=== PATIENT | male | born 1970 | race African-American/Black ===

== ENCOUNTER → 2017-12-02 | Outpatient (CLI) | payer OTHER ==
[2017-12-02 14:41] LABS: HCT 44.2 % (39.0-53.0); HGB 14.8 gm/dL (13.0-17.5); MCH 29.2 pg (25.0-35.0); MCHC 33.4 g/dL (31.0-37.0); MCV 87.6 fL (80.0-100.0); Mean Platelet Volume 7.4; Platelet Count 207 k/uL (150-450); RBC 5.05 m/uL (4.30-5.90); RDW 14.8 % (11.5-15.5); WBC 8.9 k/uL (3.8-10.6)
[2017-12-02 14:52] LABS: ALT 36 U/L (21-72); AST 36 U/L (17-59); Albumin 3.9 g/dL (3.5-5.0); Alkaline Phosphatase 73 U/L (38-126); Anion Gap 12 mmol/L; Blood Urea Nitrogen 24 mg/dL (9-20); Calcium 9.7 mg/dL (8.4-10.2); Carbon Dioxide 23 mmol/L (22-30); Chloride 103 mmol/L (98-107); Glucose 89 mg/dL (74-99); Potassium 4.4 mmol/L (3.5-5.1); Sodium 138 mmol/L (137-145); Total Bilirubin 0.3 mg/dL (0.2-1.3); Total Protein 7.8 g/dL (6.3-8.2)
== END | disposition home or self-care (01) ==
LOC: LABWHC1 13:46
PROVIDERS: ATTEND Thoracic Surgery (Cardiothoracic Vascular Surgery)
DX: E63.8 Other specified nutritional deficiencies (principal)
CPT/HCPCS: 36415; 80053; 84134; 85027

== ENCOUNTER → 2017-12-29 | Outpatient (CLI) | payer OTHER ==
--- NOTE | 2017-12-29 08:50 | XR ---
EXAMINATION TYPE: XR chest 2V DATE OF EXAM: 12/29/2017 COMPARISON: NONE HISTORY: Shortness of breath cough and wheeze for 2 months. TECHNIQUE: Frontal and lateral views of the chest are obtained. FINDINGS: There are bilateral suprahilar central opacities. There is central peribronchial thickeni ng. No pleural effusion or pneumothorax is evident bilaterally. Surgical clips anterior upper abdomen epigastric region just below diaphragm as noted. The cardiac silhouette size is upper limits of norm al. Spine is straightened. IMPRESSION: Favor chronic emphysematous change with possible developing central suprahilar infiltrat es particularly right upper lobe. Consider progress two view chest xray.
== END | disposition home or self-care (01) ==
LOC: RADXRMAIN 08:07
PROVIDERS: ATTEND Internal Medicine Sleep Medicine
DX: J43.9 Emphysema, unspecified (principal)
CPT/HCPCS: 71046

== ENCOUNTER → 2017-12-29 | Outpatient (CLI) | payer OTHER ==
[2017-12-29 09:10] VITALS: BMI 48.8
== END | disposition home or self-care (01) ==
LOC: MNTWWP 08:24
PROVIDERS: ATTEND Thoracic Surgery (Cardiothoracic Vascular Surgery)
DX: E66.01 Morbid (severe) obesity due to excess calories (principal); Z68.42 Body mass index [BMI] 45.0-49.9, adult
CPT/HCPCS: 97802

== ENCOUNTER → 2018-02-09 | Outpatient (CLI) | payer OTHER ==
--- NOTE | 2018-02-09 14:32 | CT ---
EXAMINATION TYPE: CT chest wo con DATE OF EXAM: 02/09/2018 COMPARISON: Chest x-ray December 29, 2017 HISTORY: Wheezing, coughing, shortness of breath, green phlegm x 1 year. History of asthma. History o f rheumatoid arthritis affecting lungs. CT DLP: 928.4 mGycm. Automated Exposure Control for Dose Reduction was Utilized. TECHNIQUE: CT scan of the thorax is performed without IV contrast. FINDINGS: LUNGS: Central irregular groundglass opacity is present in both lungs most prominent in the upper lob es. There is some mild reticulation and distortion in the periphery of the right upper lung anteriorl y. No suspicious nodule or mass is present. No significant bronchiectasis is noted. No pleural effusi on or pneumothorax is appreciated. MEDIASTINUM: Lack of IV contrast is noted to limit evaluation for mediastinal and especially hilar ad enopathy. There are prominent but subcentimeter bilateral hilar and mediastinal lymph nodes. There ar e no definitive greater than 1 cm hilar or mediastinal lymph nodes. No cardiomegaly or pericardial effusion is seen. Coronary artery calcification is present which is noted marker for coronary artery disease. There is streak artifact from metallic density near apex of heart could reflect clips or por tion of broken external pacemaker of the. Correlate clinically. The latter is suspected. OTHER: Moderate to advanced multilevel anterior and lateral spurring in the lower thoracic spine is s een. IMPRESSION: Cannot exclude acute pulmonary process in the central lungs bilaterally worse in upper moises ngs though groundglass opacity findings are favored chronic related to known rheumatoid lung disease.
== END | disposition home or self-care (01) ==
LOC: CPPFTMAIN 11:42
PROVIDERS: ATTEND Internal Medicine Sleep Medicine
DX: J45.50 Severe persistent asthma, uncomplicated (principal)
CPT/HCPCS: 71250; 94060; 94726; 94729

== ENCOUNTER → 2018-02-23 | Outpatient (CLI) | payer OTHER ==
[2018-02-24 11:54] LABS: Alt. alternata IgE Class CLASS II; Alternaria alternata IgE 3.31 kU/L (<0.35); Asperg. fumagatus IgE <0.35 kU/L (<0.35); Asperg. fumagatus IgE Class CLASS 0; Bermuda Grass IgE 0.52 kU/L (<0.35); Birch(Com.Silvr) IgE <0.35 kU/L (<0.35); Birch(Com.Silvr) IgE Class CLASS 0; Cat Epith & Dander IgE <0.35 kU/L (<0.35); Cat Epith & Dander IgE Class CLASS 0; Clad herbarum IgE <0.35 kU/L (<0.35); Cottonwood IgE <0.35 kU/L (<0.35); Dermato. farinae IgE Class CLASS III; Dog Dander IgE <0.35 kU/L (<0.35); Elm IgE <0.35 kU/L (<0.35); Maple (Box Elder) IgE Class CLASS I; Mountain Cedar IgE 1.12 kU/L (<0.35); Mountain Cedar IgE Class CLASS II; Mouse Urine IgE Class CLASS 0; Nettle IgE 1.24 kU/L (<0.35); Nettle IgE Class CLASS II; Penicillium notatum IgE Class CLASS 0; Rough Marshelder IgE 3.28 kU/L (<0.35); Rough Marshelder IgE Class CLASS II; White Ash IgE Class CLASS I
== END | disposition home or self-care (01) ==
LOC: LABWHC1 13:28
PROVIDERS: ATTEND Internal Medicine Sleep Medicine
DX: B44.81 Allergic bronchopulmonary aspergillosis (principal)
CPT/HCPCS: 36415; 82785; 86001; 86003; 86606; 86609

== ENCOUNTER 2018-04-08 07:10 | Emergency (ER) | payer OTHER ==
--- NOTE | 2018-04-08 07:34 | ED ---
General Adult HPI - General Chief complaint: ENT Stated complaint: Ear Pain Time Seen by Provider: 04/08/18 07:25 Source: patient, RN notes reviewed Mode of arrival: ambulatory Limitations: no limitations - History of Present Illness Initial comments: Patient is a pleasant 47-year-old male presenting to the emergency Department with complaints of ear fullness. Onset of symptoms was several days to weeks ago. Patient has some muffled hearing from his right ear. Patient states it is irritating. Patient states he did have some discomfort the other day however that has resolved. No throat pain. Patient does have history of chronic abscesses. Patient does have an area that opened in the suprapubic region. Patient requests antibiotics for this. Patient states there has been some purulent drainage. - Related Data Home Medications Medication Instructions Recorded Confirmed Albuterol Inhaler [Ventolin Hfa 1 - 2 puff INHALATION RT-Q6H PRN 11/24/17 Inhaler] Baclofen 10 mg PO BID 11/24/17 04/08/18 Budesonide-Formot 160-4.5 Mcg 2 puff INHALATION RT-BID 11/24/17 04/08/18 [Symbicort 160-4.5 Mcg Inhaler] Colchicine 0.6 mg PO BID 11/24/17 04/08/18 Ibuprofen [Motrin] 800 mg PO Q8H PRN 11/24/17 04/08/18 Levothyroxine Sodium [Synthroid] 137 mcg PO DAILY 11/24/17 04/08/18 Loratadine [Claritin] 10 mg PO DAILY 11/24/17 04/08/18 Pregabalin [Lyrica] 100 mg PO BID 11/24/17 04/08/18 oxyCODONE HCL 15 mg PO TID PRN 11/25/17 04/08/18 Adalimumab [Humira Pen] 40 mg PO Q14D 04/08/18 04/08/18 Ipratropium-Albuterol Nebulize 3 ml INHALATION RT-QID 04/08/18 04/08/18 [Duoneb 0.5 mg-3 mg/3 ml Soln] Previous Rx's Medication Instructions Recorded Cephalexin [Keflex] 500 mg PO QID #40 cap 04/08/18 Ciprofloxacin HCl/Dexameth 3 drops RIGHT EAR BID #10 ml 04/08/18 [Ciprodex Otic Suspension] Allergies Allergy/AdvReac Type Severity Reaction Status Date / Time No Known Allergies Allergy Verified 04/08/18 07:46 Review of Systems ROS Statement: Those systems with pertinent positive or pertinent negative responses have been documented in the HPI. ROS Other: All systems not noted in ROS Statement are negative. Constitutional: Denies: fever Eyes: Denies: eye pain ENT: Reports: other (Ear fullness and decreased hearing right ear) Respiratory: Denies: dyspnea Cardiovascular: Denies: chest pain Endocrine: Denies: fatigue Gastrointestinal: Denies: abdominal pain Genitourinary: Denies: dysuria Musculoskeletal: Denies: back pain Skin: Reports: as per HPI, rash Neurological: Denies: weakness Past Medical History Past Medical History: Asthma, Deep Vein Thrombosis (DVT), Rheumatoid Arthritis ( RA), Skin Disorder, Sleep Apnea/CPAP/BIPAP, Thyroid Disorder Additional Past Medical History / Comment(s): uses CPAP, gout,chronic back pain , DVT 2017, wound left foot between toes History of Any Multi-Drug Resistant Organisms: None Reported Additional Past Surgical History / Comment(s): pilonidal cyst removed Past Anesthesia/Blood Transfusion Reactions: No Reported Reaction Past Psychological History: Anxiety Smoking Status: Current every day smoker Past Alcohol Use History: None Reported Past Drug Use History: None Reported - Past Family History Mother Family Medical History: Cancer Father Family Medical History: Coronary Artery Disease (CAD), CVA/TIA General Exam Limitations: no limitations General appearance: alert, in no apparent distress Head exam: Present: atraumatic Eye exam: Present: normal appearance ENT exam: Present: normal oropharynx, other (Bilateral cerumen impaction) Neck exam: Present: normal inspection Respiratory exam: Present: normal lung sounds bilaterally Cardiovascular Exam: Present: regular rate, normal rhythm GI/Abdominal exam: Present: soft. Absent: tenderness Extremities exam: Present: normal inspection Neurological exam: Present: alert Psychiatric exam: Present: normal affect, normal mood Skin exam: Present: other (Small open abscess in the suprapubic region with purulent drainage.) Course Vital Signs 04/08/18 07:13 Temperature 98 F Pulse Rate 83 Respiratory 22 Rate Blood Pressure 120/88 O2 Sat by Pulse 97 Oximetry Medical Decision Making - Medical Decision Making Patient reevaluated and improved. Resolution of Cerumen impaction. Disposition Clinical Impression: Cerumen impaction, Suprapubic abscess Disposition: HOME SELF-CARE Condition: Stable Instructions: Abscess (ED), Cerumen Impaction (ED) Additional Instructions: Please follow-up with primary care physician as well as general surgeon in the next few days for recheck. Return for increased rash or swelling, ear problems , fevers, worsening symptoms or other concerns. Prescriptions: Cephalexin [Keflex] 500 mg PO QID #40 cap Ciprofloxacin HCl/Dexameth [Ciprodex Otic Suspension] 3 drops RIGHT EAR BID #10 ml Is patient prescribed a controlled substance at d/c from ED?: No Referrals: Sen Langley DO [Primary Care Provider] - 1-2 days Madison Encarnacion DO [Doctor of Osteopathic Medicine] - 1-2 days Time of Disposition: 08:31
[2018-04-08 08:40] VITALS: BP 118/76; PULSE 86; RESP 18; TEMP 97.8
== END 2018-04-08 08:40 | disposition home or self-care (01) ==
LOC: EC 07:10
DX: H61.21 Impacted cerumen, right ear (principal); L02.211 Cutaneous abscess of abdominal wall; J45.909 Unspecified asthma, uncomplicated; G47.30 Sleep apnea, unspecified; F41.9 Anxiety disorder, unspecified; F17.200 Nicotine dependence, unspecified, uncomplicated; Z79.51 Long term (current) use of inhaled steroids; Z79.899 Other long term (current) drug therapy; Z86.718 Personal history of other venous thrombosis and embolism
CPT/HCPCS: 87070; 87205; 99283

== ENCOUNTER 2018-05-05 20:36 | Emergency (ER) | payer OTHER ==
--- NOTE | 2018-05-05 23:04 | ED ---
General Adult HPI - General Source: RN notes reviewed <Gulshan Peterson - Last Filed: 05/06/18 01:04> - General Source: patient Mode of arrival: ambulatory Limitations: no limitations <Mireille Calixto - Last Filed: 05/06/18 08:04> - General Chief complaint: Skin/Abscess/Foreign Body Stated complaint: boil on back Time Seen by Provider: 05/05/18 22:19 - History of Present Illness Initial comments: Patient's a 47-year-old male significant past medical history for hidradenitis suppurative who presents emergency room today with a chief complaint of an abscess to his lower back. Patient does admit that it's been present for the past 3 weeks. He states is common larger. He does not that he is on doxycycline that he just started just 2 days ago. He does admit that he was seen in the ER recently for an abscess to the lower abdomen. He states this one seems to be rolled same but the one to the lower back seems like it has gotten larger. He states there is some small amount draining coming from the area. Patient does admit that he's had it lanced in the past. He states he is planning to follow up the surgeon. He denies any other complaints or symptoms. Patient denies any recent fever, chills, shortness of breath, chest pain, back pain, abdominal pain, nausea or vomiting, numbness or tingling, headaches or visual changes, or any other complaints. (Gulshan Peterson) - Related Data Home Medications Medication Instructions Recorded Confirmed Albuterol Inhaler [Ventolin Hfa 1 - 2 puff INHALATION RT-Q6H PRN 11/24/17 Inhaler] Baclofen 10 mg PO BID 11/24/17 04/08/18 Budesonide-Formot 160-4.5 Mcg 2 puff INHALATION RT-BID 11/24/17 04/08/18 [Symbicort 160-4.5 Mcg Inhaler] Colchicine 0.6 mg PO BID 11/24/17 04/08/18 Ibuprofen [Motrin] 800 mg PO Q8H PRN 11/24/17 04/08/18 Levothyroxine Sodium [Synthroid] 137 mcg PO DAILY 11/24/17 04/08/18 Loratadine [Claritin] 10 mg PO DAILY 11/24/17 04/08/18 Pregabalin [Lyrica] 100 mg PO BID 11/24/17 04/08/18 oxyCODONE HCL 15 mg PO TID PRN 11/25/17 04/08/18 Adalimumab [Humira Pen] 40 mg PO Q14D 04/08/18 04/08/18 Ipratropium-Albuterol Nebulize 3 ml INHALATION RT-QID 04/08/18 04/08/18 [Duoneb 0.5 mg-3 mg/3 ml Soln] Previous Rx's Medication Instructions Recorded Cephalexin [Keflex] 500 mg PO QID #40 cap 04/08/18 Ciprofloxacin HCl/Dexameth 3 drops RIGHT EAR BID #10 ml 04/08/18 [Ciprodex Otic Suspension] Clindamycin HCl 300 mg PO Q6H #40 cap 05/06/18 Allergies Allergy/AdvReac Type Severity Reaction Status Date / Time morphine AdvReac Nausea & Verified 05/05/18 21:34 Vomiting Review of Systems ROS Other: All systems not noted in ROS Statement are negative. <Gulshan Peterson - Last Filed: 05/06/18 01:04> ROS Other: All systems not noted in ROS Statement are negative. <Mireille Calixto P - Last Filed: 05/06/18 08:04> ROS Statement: Those systems with pertinent positive or pertinent negative responses have been documented in the HPI. Past Medical History Past Medical History: Asthma, Deep Vein Thrombosis (DVT), Rheumatoid Arthritis ( RA), Skin Disorder, Sleep Apnea/CPAP/BIPAP, Thyroid Disorder Additional Past Medical History / Comment(s): uses CPAP, gout,chronic back pain , DVT 2017, wound left foot between toes History of Any Multi-Drug Resistant Organisms: MRSA Date of last positivie culture/infection: 04/08/18 MDRO Source:: LEG Additional Past Surgical History / Comment(s): pilonidal cyst removed Past Anesthesia/Blood Transfusion Reactions: No Reported Reaction Past Psychological History: Anxiety Smoking Status: Current every day smoker Past Alcohol Use History: None Reported Past Drug Use History: None Reported - Past Family History Mother Family Medical History: Cancer Father Family Medical History: Coronary Artery Disease (CAD), CVA/TIA <Mireille Calixto - Last Filed: 05/06/18 08:04> General Exam <Gulshan Peterson - Last Filed: 05/06/18 01:04> Limitations: no limitations <Mireille Calixto - Last Filed: 05/06/18 08:04> - General Exam Comments Initial Comments: General: The patient is awake and alert Eye: extra-ocular movements are intact. No nystagmus. There is normal conjunctiva bilaterally. No signs of icterus. Ears, nose, mouth and throat: There are moist mucous membranes and no oral lesions. Neck: The neck is supple Cardiovascular: There is a regular rate and rhythm. No murmur, rub or gallop is appreciated. Respiratory: Lungs are clear to auscultation, respirations are non-labored, breath sounds are equal. No wheezes, stridor, rales, or rhonchi. Gastrointestinal: Admits soft on palpation. Musculoskeletal: Normal ROM, no tenderness. Sensation intact. Neurological: A&O x 3. CN II-XII intact, There are no obvious motor or sensory deficits. Coordination appears grossly intact. Speech is normal. Skin: Large abscess to the lower back measuring approximately 4 cm across. Firm on palpation mildly warm. Psychiatric: Cooperative, appropriate mood & affect, normal judgment. (Gulshan Peterson) Vital Signs 05/05/18 05/06/18 05/06/18 21:26 00:15 01:45 Temperature 98.6 F 98.1 F 98.8 F Pulse Rate 78 75 100 Respiratory 18 18 20 Rate Blood Pressure 136/86 140/85 150/100 O2 Sat by Pulse 99 98 93 L Oximetry Procedures <Gulshan Peterson - Last Filed: 05/06/18 01:04> <Mireille Calixto - Last Filed: 05/06/18 08:04> - Procedures Initial comment: Procedure: Incision and drainage The skin overlying the abscess was prepped with Betadine, and anesthetized with 1% lidocaine without epinephrine. A #11 scalpel was then used to incise the abscess. Some purulent material was then extracted from the lesion. Gauze dressing placed on top, The patient tolerated the procedure well. (Gulshan Peterson) Medical Decision Making <Gulshan Peterson - Last Filed: 05/06/18 01:04> <Mireille Calixto - Last Filed: 05/06/18 08:04> - Medical Decision Making I performed a bedside ultrasound to evaluate the abscess. There was LOC evaluation a lot of scar tissue, no cobblestoning evidence of cellulitis. An incision was made over the largest area of fluctuance by the mid-level provider but only minimal drainage was noted. I attempted a second attempt at aspiration of the fluid with an 18-gauge needle but was unsuccessful and aspirating any purulent fluid. I suspect that due to the multiple areas of scar tissue that the fluid collection will require surgical intervention. Patient states that he can see his surgeon tomorrow for reevaluation. I personally saw and examined the patient. I reviewed and agree with the mid- level provider findings including all diagnostic interpretations and treatment plans as written unless otherwise stated. I was present for mckeon portions of any procedures performed. (Mireille Calixto) Disposition Is patient prescribed a controlled substance at d/c from ED?: No Time of Disposition: 01:05 <Gulshan Peterson - Last Filed: 05/06/18 01:04> <Mireille Calixto - Last Filed: 05/06/18 08:04> Clinical Impression: Pilonidal cyst Disposition: HOME SELF-CARE Condition: Good Instructions: Abscess (ED) Additional Instructions: Please use medication as discussed. Please follow-up with surgeon tomorrow. Please return to emergency room if the symptoms increase or worsen or for any other concerns. Prescriptions: Clindamycin HCl 300 mg PO Q6H #40 cap Referrals: Sen Langley DO [Primary Care Provider] - 1-2 days
[2018-05-05] MEDS ORDERED: LIDOCAINE 1% INJ 10MG/ML (20 ML MDV) SQ STA (23:32)
[2018-05-06] MEDS ORDERED: MORPHINE SULFATE 4 MG/ML SYRINGE IM STA (00:20)
[2018-05-06] MEDS ORDERED: ONDANSETRON ODT 4 MG TAB PO STA (00:21)
[2018-05-06] MEDS ORDERED: CLINDAMYCIN 150 MG CAP PO STA (01:05)
[2018-05-06 01:48] VITALS: BP 150/100; PULSE 100; RESP 20; TEMP 98.8
== END 2018-05-06 01:45 | disposition home or self-care (01) ==
LOC: EC 20:36
DX: L05.01 Pilonidal cyst with abscess (principal); J45.909 Unspecified asthma, uncomplicated; M06.9 Rheumatoid arthritis, unspecified; G47.30 Sleep apnea, unspecified; Z99.89 Dependence on other enabling machines and devices; E07.9 Disorder of thyroid, unspecified; F41.9 Anxiety disorder, unspecified; M10.9 Gout, unspecified; F17.200 Nicotine dependence, unspecified, uncomplicated; Z86.14 Personal history of Methicillin resistant Staphylococcus aureus infection; Z86.718 Personal history of other venous thrombosis and embolism; Z79.51 Long term (current) use of inhaled steroids; Z79.899 Other long term (current) drug therapy; Z88.5 Allergy status to narcotic agent
CPT/HCPCS: 99282; 10160; 96374; J2270; J2001

== ENCOUNTER → 2018-06-23 | Outpatient (CLI) | payer OTHER ==
[2018-06-24 11:50] LABS: Alt. alternata IgE Class CLASS II; Alternaria alternata IgE 1.54 kU/L (<0.35); Asperg. fumagatus IgE <0.35 kU/L (<0.35); Asperg. fumagatus IgE Class CLASS 0; Bermuda Grass IgE 0.66 kU/L (<0.35); Birch(Com.Silvr) IgE <0.35 kU/L (<0.35); Birch(Com.Silvr) IgE Class CLASS 0; Cat Epith & Dander IgE <0.35 kU/L (<0.35); Cat Epith & Dander IgE Class CLASS 0; Clad herbarum IgE <0.35 kU/L (<0.35); Cockroach IgE 9.73 kU/L (<0.35); Cottonwood IgE <0.35 kU/L (<0.35); Dermato. Pteronyssinus IgE 7.38 kU/L (<0.35); Dermato. farinae IgE Class CLASS III; Dog Dander IgE <0.35 kU/L (<0.35); Elm IgE <0.35 kU/L (<0.35); Maple (Box Elder) IgE 0.48 kU/L (<0.35); Maple (Box Elder) IgE Class CLASS I; Mountain Cedar IgE 1.45 kU/L (<0.35); Mountain Cedar IgE Class CLASS II; Mouse Urine IgE Class CLASS 0; Nettle IgE 1.53 kU/L (<0.35); Nettle IgE Class CLASS II; Oak IgE 0.52 kU/L (<0.35); Penicillium notatum IgE Class CLASS 0; Rough Marshelder IgE 5.35 kU/L (<0.35); Rough Marshelder IgE Class CLASS III; Timothy Grass IgE 9.54 kU/L (<0.35); White Ash IgE Class CLASS II
== END | disposition home or self-care (01) ==
LOC: LABWHC1 09:02
PROVIDERS: ATTEND Internal Medicine Sleep Medicine
DX: B44.1 Other pulmonary aspergillosis (principal)
CPT/HCPCS: 36415; 82785; 86001; 86003; 86606; 86609

== ENCOUNTER 2023-11-10 17:17 | Emergency (ER) | payer OTHER ==
[2023-11-10 17:39] VITALS: RESP 18; TEMP 98.1
--- NOTE | 2023-11-10 18:02 | ED ---
General Adult HPI - General Chief complaint: Shortness of Breath Stated complaint: SOB Time Seen by Provider: 11/10/23 18:02 Source: patient, EMS Mode of arrival: EMS - History of Present Illness Initial comments: 53-year-old male with history of COPD sent from [facility] for shortness of breath. This is the patient's first day at [facility] for alcohol detox. He states that he feels fine and is unsure why they sent him here. [facility]'s documentation states that the patient had a pulse ox in the 80s on exertion, at rest it improved to 90% on room air. Patient denies any cough, congestion, sore throat, fevers, chest pain, difficulty breathing, abdominal pain, nausea, vomiting, dizziness, headache, lower extremity swelling. - Related Data Home Medications Medication Instructions Recorded Confirmed Albuterol Inhaler [Ventolin Hfa 1 - 2 puff INHALATION RT-Q6H PRN 11/24/17 04/08/18 Inhaler] Baclofen 10 mg PO BID 11/24/17 04/08/18 Budesonide-Formot 160-4.5 Mcg 2 puff INHALATION RT-BID 11/24/17 04/08/18 [Symbicort 160-4.5 Mcg Inhaler] Colchicine 0.6 mg PO BID 11/24/17 04/08/18 Ibuprofen [Motrin] 800 mg PO Q8H PRN 11/24/17 04/08/18 Levothyroxine Sodium [Synthroid] 137 mcg PO DAILY 11/24/17 04/08/18 Loratadine [Claritin] 10 mg PO DAILY 11/24/17 04/08/18 Pregabalin [Lyrica] 100 mg PO BID 11/24/17 04/08/18 oxyCODONE HCL [oxyCODONE HCL (IR)] 15 mg PO TID PRN 11/25/17 04/08/18 Adalimumab [Humira Pen] 40 mg PO Q14D 04/08/18 04/08/18 Ipratropium-Albuterol Nebulize 3 ml INHALATION RT-QID 04/08/18 04/08/18 [Duoneb 0.5 mg-3 mg/3 ml Soln] Previous Rx's Medication Instructions Recorded Cephalexin [Keflex] 500 mg PO QID #40 cap 07/26/18 Ciprofloxacin HCl/Dexameth 3 drops RIGHT EAR BID #10 ml 04/08/18 [Ciprodex Otic Suspension] clindamycin HCL [Clindamycin HCl] 300 mg PO Q6H #40 cap 05/06/18 LORazepam [Ativan] 1 mg PO BID PRN 3 Days #6 tab 11/10/23 Allergies Allergy/AdvReac Type Severity Reaction Status Date / Time morphine AdvReac Nausea & Verified 05/05/18 21:34 Vomiting Review of Systems ROS Statement: Those systems with pertinent positive or pertinent negative responses have been documented in the HPI. ROS Other: All systems not noted in ROS Statement are negative. Past Medical History Past Medical History: Asthma, COPD, Deep Vein Thrombosis (DVT), Rheumatoid Arthritis (RA), Skin Disorder, Sleep Apnea/CPAP/BIPAP, Thyroid Disorder Additional Past Medical History / Comment(s): uses CPAP, gout,chronic back pain, DVT 2017, wound left foot between toes History of Any Multi-Drug Resistant Organisms: MRSA Date of last positivie culture/infection: 04/08/18 MDRO Source:: LEG Additional Past Surgical History / Comment(s): pilonidal cyst removed Past Anesthesia/Blood Transfusion Reactions: No Reported Reaction Past Psychological History: Anxiety Smoking Status: Current every day smoker Past Alcohol Use History: Abuse, Daily Past Drug Use History: None Reported - Past Family History Mother Family Medical History: Cancer Father Family Medical History: Coronary Artery Disease (CAD), CVA/TIA General Exam - General Exam Comments Initial Comments: Visual Physical Exam Vital signs reviewed General: Well-appearing, nontoxic, no acute distress. Head: Normocephalic, atraumatic Eyes: PERRLA, EOMI ENT: Airway patent Chest: Nonlabored breathing Skin: No visual rash, normal skin tone Neuro: Alert and oriented 3 Musculoskeletal: No gross abnormalities Limitations: no limitations General appearance: alert, in no apparent distress Head exam: Present: atraumatic, normocephalic Eye exam: Present: normal appearance Neck exam: Present: normal inspection Respiratory exam: Present: wheezes (Mild end expiratory wheezes heard on aus cultation). Absent: respiratory distress, rales, rhonchi, stridor Cardiovascular Exam: Present: regular rate, normal rhythm, normal heart sounds. Absent: systolic murmur, diastolic murmur, rubs, gallop, clicks Neurological exam: Present: alert, oriented X3 Psychiatric exam: Present: normal affect, normal mood Skin exam: Present: warm, dry Course Vital Signs 11/10/23 11/10/23 11/10/23 17:24 18:25 19:19 Temperature 98.1 F Pulse Rate 98 88 Respiratory 18 18 Rate Blood Pressure 122/80 O2 Sat by Pulse 97 Oximetry 11/10/23 11/10/23 11/10/23 19:27 19:54 21:38 Temperature Pulse Rate 90 79 78 Respiratory 18 18 Rate Blood Pressure 118/64 116/70 O2 Sat by Pulse 98 99 Oximetry Medical Decision Making - Medical Decision Making Was pt. sent in by a medical professional or institution (, PA, OPERATIONS EXECUTIVE, urgent care, hospital, or longterm...) When possible be specific @ -No Did you speak to anyone other than the patient for history (EMS, parent, family, police, friend...)? What history was obtained from this source @ -No Did you review nursing and triage notes (agree or disagree)? Why? @ -I reviewed and agree with nursing and triage notes Were old charts reviewed (outside hosp., previous admission, EMS record, old EKG, old radiological studies, urgent care reports/EKG's, longterm records)? Report findings @ -No old charts were reviewed Differential Diagnosis (chest pain, altered mental status, abdominal pain women, abdominal pain men, vaginal bleeding, weakness, fever, dyspnea, syncope, headache, dizziness, GI bleed, back pain, seizure, CVA, palpatations, mental health, musculoskeletal)? @ -MDM Differential Dyspnea: Coronary syndrome, arrhythmia, tamponade, asthma, COPD, pulmonary embolism, pneumonia, pneumothorax, pulmonary effusion, anaphylaxis, diabetic ketoacidosis, flailed chest, pulmonary contusion, diaphragmatic rupture, anemia, neuromuscular this is not meant to be an all-inclusive list. EKG interpreted by me (3pts min.). @ -As above X-rays interpreted by me (1pt min.). @ -Chest x-ray shows cardiomegaly and mild pulmonary vascular congestion. Correlate with BNP for congestive heart failure. COPD changes. CT interpreted by me (1pt min.). @ -None done U/S interpreted by me (1pt. min.). @ -None done What testing was considered but not performed or refused? (CT, X-rays, U/S, labs)? Why? @ -None What meds were considered but not given or refused? Why? @ -None Did you discuss the management of the patient with other professionals (professionals i.e. , PA, OPERATIONS EXECUTIVE, lab, RT, psych nurse, social services analyst, chainstitch tunnel elastic operator, teacher, chief green officer, medical case worker)? Give summary @ -No Was smoking cessation discussed for >3mins.? @ -No Was critical care preformed (if so, how long)? @ -No Were there social determinants of health that impacted care today? How? (Homelessness, low income, unemployed, alcoholism, drug addiction, transportation, low edu. Level, literacy, decrease access to med. care, [facility], rehab)? @ -No Was there de-escalation of care discussed even if they declined (Discuss DNR or withdrawal of care, Hospice)? DNR status @ -No What co-morbidities impacted this encounter? (DM, HTN, Smoking, COPD, CAD, Cancer, CVA, ARF, Chemo, Hep., AIDS, mental health diagnosis, sleep apnea, morbid obesity)? @ -None Was patient admitted / discharged? Hospital course, mention meds given and route, prescriptions, significant lab abnormalities, going to OR and other pertinent info. @ -53-year-old male who was sent from [facility] for low oxygen saturation. Upon arrival he is at 97% on room air. Patient denies any shortness of breath chest pain or other symptoms, he is unsure why he was sent to the ER. Lab work shows no leukocytosis or anemia. Chest x-ray suggests possible CHF, however his BNP is less than 20. Negative troponin. He is negative for influenza, RSV, and COVID. On auscultation there are some mild expiratory wheezes heard, he is given DuoNeb. Discharged. Follow-up with PCP. Report back to ER with any new or worsening symptoms. Discussed return parameters and answered all questions. Patient conveyed verbal understanding and agreed to the plan. I discussed this case in detail with my attending Dr. Sparks Undiagnosed new problem with uncertain prognosis? @ -No Drug Therapy requiring intensive monitoring for toxicity (Heparin, Nitro, Insulin, Cardizem)? @ -No Were any procedures done? @ -No Diagnosis/symptom? @ -Wheezing Acute, or Chronic, or Acute on Chronic? @ -Acute Uncomplicated (without systemic symptoms) or Complicated (systemic symptoms)? @Uncomplicated Side effects of treatment? @ -No Exacerbation, Progression, or Severe Exacerbation? @ -No Poses a threat to life or bodily function? How? (Chest pain, USA, SD, pneumonia, PE, COPD, DKA, ARF, appy, cholecystitis, CVA, Diverticulitis, Homicidal, Suicidal, threat to staff... and all critical care pts) @ -Unlikely - Lab Data Result diagrams: 11/10/23 20:17 11/10/23 20:17 Lab Results 11/10/23 11/10/23 11/10/23 Range/Units 18:18 20:17 20:17 WBC 7.4 (3.8-10.6) k/uL RBC 4.65 (4.30-5.90) m/uL Hgb 13.9 (13.0-17.5) gm/dL Hct 42.0 (39.0-53.0) % MCV 90.5 (80.0-100.0) fL MCH 29.9 (25.0-35.0) pg MCHC 33.0 (31.0-37.0) g/dL RDW 14.0 (11.5-15.5) % Plt Count 244 (150-450) k/uL MPV 8.2 Neutrophils % 50 % Lymphocytes % 37 % Monocytes % 6 % Eosinophils % 4 % Basophils % 1 % Neutrophils # 3.7 (1.3-7.7) k/uL Lymphocytes # 2.8 (1.0-4.8) k/uL Monocytes # 0.5 (0-1.0) k/uL Eosinophils # 0.3 (0-0.7) k/uL Basophils # 0.1 (0-0.2) k/uL Sodium 135 L (137-145) mmol/L Potassium 3.4 L (3.5-5.1) mmol/L Chloride 98 (98-107) mmol/L Carbon Dioxide 31 H (22-30) mmol/L Anion Gap 6 mmol/L BUN 9 (9-20) mg/dL Creatinine 0.70 (0.66-1.25) mg/dL Est GFR (CKD-EPI)AfAm >90 (>60 ml/min/1.73 sqM) Est GFR (CKD-EPI)NonAf >90 (>60 ml/min/1.73 sqM) Glucose 94 (74-99) mg/dL Calcium 8.1 L (8.4-10.2) mg/dL Total Bilirubin 0.6 (0.2-1.3) mg/dL AST 60 H (17-59) U/L ALT 39 (4-49) U/L Alkaline Phosphatase 59 (38-126) U/L Troponin I (0.000-0.034) ng/mL NT-Pro-B Natriuret Pep <20 pg/mL Total Protein 7.1 (6.3-8.2) g/dL Albumin 3.3 L (3.5-5.0) g/dL Influenza Type A (PCR) Not Detected (Not Detectd) Influenza Type B (PCR) Not Detected (Not Detectd) RSV (PCR) Not Detected (Not Detectd) SARS-CoV-2 (PCR) Not Detected (Not Detectd) 11/10/23 Range/Units 20:17 WBC (3.8-10.6) k/uL RBC (4.30-5.90) m/uL Hgb (13.0-17.5) gm/dL Hct (39.0-53.0) % MCV (80.0-100.0) fL MCH (25.0-35.0) pg MCHC (31.0-37.0) g/dL RDW (11.5-15.5) % Plt Count (150-450) k/uL MPV Neutrophils % % Lymphocytes % % Monocytes % % Eosinophils % % Basophils % % Neutrophils # (1.3-7.7) k/uL Lymphocytes # (1.0-4.8) k/uL Monocytes # (0-1.0) k/uL Eosinophils # (0-0.7) k/uL Basophils # (0-0.2) k/uL Sodium (137-145) mmol/L Potassium (3.5-5.1) mmol/L Chloride (98-107) mmol/L Carbon Dioxide (22-30) mmol/L Anion Gap mmol/L BUN (9-20) mg/dL Creatinine (0.66-1.25) mg/dL Est GFR (CKD-EPI)AfAm (>60 ml/min/1.73 sqM) Est GFR (CKD-EPI)NonAf (>60 ml/min/1.73 sqM) Glucose (74-99) mg/dL Calcium (8.4-10.2) mg/dL Total Bilirubin (0.2-1.3) mg/dL AST (17-59) U/L ALT (4-49) U/L Alkaline Phosphatase (38-126) U/L Troponin I <0.012 (0.000-0.034) ng/mL NT-Pro-B Natriuret Pep pg/mL Total Protein (6.3-8.2) g/dL Albumin (3.5-5.0) g/dL Influenza Type A (PCR) (Not Detectd) Influenza Type B (PCR) (Not Detectd) RSV (PCR) (Not Detectd) SARS-CoV-2 (PCR) (Not Detectd) Disposition Clinical Impression: Wheezing Disposition: HOME SELF-CARE Condition: Good Instructions (If sedation given, give patient instructions): COPD (Chronic Obstructive Pulmonary Disease) (ED), Wheezing (ED) Additional Instructions: Follow-up with PCP. Report back to ER with any new or worsening symptoms. Prescriptions: LORazepam [Ativan] 1 mg PO BID PRN 3 Days #6 tab PRN Reason: Alcohol Withdrawal Is patient prescribed a controlled substance at d/c from ED?: No Referrals: None,Stated [Primary Care Provider] - 1-2 days Time of Disposition: 21:16
--- NOTE | 2023-11-10 18:53 | XR ---
EXAMINATION TYPE: XR chest 2V DATE OF EXAM: 11/10/2023 6:47 PM CLINICAL INDICATION:Male, 53 years old with history of BHAVANI; [facility] COMPARISON: Chest radiographs from 12/29/2017. TECHNIQUE: XR chest 2V Frontal and lateral views of the chest. FINDINGS: Lungs/Pleura: There is flattening of the diaphragm with increased lucency of the lungs. No evidence o f pneumothorax, pleural effusion or focal consolidation. Pulmonary vascularity: Pulmonary vascular congestion. Heart/mediastinum: Cardiomediastinal silhouette is enlarged and stable. Musculoskeletal: No acute osseous pathology. IMPRESSION: 1. Cardiomegaly and mild pulmonary vascular congestion. Correlate with BNP for congestive heart fail ure. 2. COPD changes.
[2023-11-10] MEDS: IPRATROPIUM-ALBUTEROL 3 ML NEB INHALATION STA (19:15)
[2023-11-10 20:26] LABS: Basophils # (A) 0.1 k/uL (0-0.2); Basophils % (A) 1 %; Eosinophils # (A) 0.3 k/uL (0-0.7); Eosinophils % (A) 4 %; HGB 13.9 gm/dL (13.0-17.5); Lymphocytes # (A) 2.8 k/uL (1.0-4.8); Lymphocytes % (A) 37 %; MCH 29.9 pg (25.0-35.0); MCV 90.5 fL (80.0-100.0); Mean Platelet Volume 8.2; Monocytes # (A) 0.5 k/uL (0-1.0); Monocytes % (A) 6 %; Neutrophils # (A) 3.7 k/uL (1.3-7.7); Neutrophils % (A) 50 %; Platelet Count 244 k/uL (150-450); RBC 4.65 m/uL (4.30-5.90); WBC 7.4 k/uL (3.8-10.6)
[2023-11-10 20:37] LABS: ALT 39 U/L (4-49); AST 60 U/L (17-59); African American GFR (CKD) >90 (>60 ml/min/1.73 sqM); Albumin 3.3 g/dL (3.5-5.0); Alkaline Phosphatase 59 U/L (38-126); Anion Gap 6 mmol/L; Blood Urea Nitrogen 9 mg/dL (9-20); Calcium 8.1 mg/dL (8.4-10.2); Carbon Dioxide 31 mmol/L (22-30); Chloride 98 mmol/L (98-107); Glucose 94 mg/dL (74-99); Non-African American GFR(CKD) >90 (>60 ml/min/1.73 sqM); Potassium 3.4 mmol/L (3.5-5.1); Sodium 135 mmol/L (137-145); Total Bilirubin 0.6 mg/dL (0.2-1.3); Total Protein 7.1 g/dL (6.3-8.2)
[2023-11-10 20:46] LABS: NT-Pro-B-Type Natriuretic Pept <20 pg/mL
[2023-11-10 21:53] VITALS: BP 116/70; PULSE 78
== END 2023-11-10 21:45 | disposition home or self-care (01) ==
LOC: EC 17:17
DX: R06.2 Wheezing (principal); J44.89 Other specified chronic obstructive pulmonary disease; G47.30 Sleep apnea, unspecified; I50.9 Heart failure, unspecified; F41.9 Anxiety disorder, unspecified; F17.200 Nicotine dependence, unspecified, uncomplicated; Z88.5 Allergy status to narcotic agent; Z79.51 Long term (current) use of inhaled steroids; Z79.890 Hormone replacement therapy; Z79.899 Other long term (current) drug therapy; Z20.822 Contact with and (suspected) exposure to COVID-19
CPT/HCPCS: 36415; 71046; 80053; 83880; 84484; 85025; 87636; 94640; 99285